=== PATIENT | male | born 1985 | race Two or more races ===

== ENCOUNTER 2022-01-25 12:03 | Outpatient (REF) | payer OTHER, SELFPAY ==
[2022-01-25 13:42] LABS: Hematocrit 42.9 % (42.0-52.0); Hemoglobin 14.2 g/dl (14.0-18.0); Mean Corpuscular HGB Conc 33.1 g/dl (31.0-36.0); Mean Corpuscular Hemoglobin 28.9 pg (27.0-33.0); Mean Corpuscular Volume 87.4 fL (80.0-98.0); Mean Platelet Volume 10.2 fL (9.4-12.4); Platelet Count 293 X10*3/uL (160-400); Red Blood Count 4.91 X10*6/uL (4.60-5.80); Red Cell Distribution Width 12.6 % (11.0-16.0); White Blood Count 7.3 X10*3/uL (4.8-10.8)
[2022-01-25 14:00] LABS: Alanine Aminotransferase 45 U/L (0-40); Albumin Level 4.5 g/dL (3.5-5.0); Alkaline Phosphatase 59 U/L (39-117); Anion Gap 14 (12-20); Aspartate Amino Transferase 35 U/L (5-37); Bilirubin Total 0.5 mg/dL (0.0-1.0); Blood Urea Nitrogen 10 mg/dL (9-16); Calcium 9.5 mg/dL (8.4-10.2); Carbon Dioxide 27 mmol/L (22-29); Chloride 104 mmol/L (96-108); Cholesterol 197 mg/dL; Estimated Glomerular Filt Rate > 60; Glucose Fasting 100 mg/dL (60-99); HDL Cholesterol 29 mg/dL; Potassium 4.4 mmol/L (3.3-5.1); Sodium 141 mmol/L (135-145); Total Protein 7.5 g/dL (6.5-8.0); Triglycerides 450 mg/dL
[2022-01-25 14:24] LABS: TSH reflex Free T4 0.98 uIU/mL (0.32-4.0)
== END 2022-01-25 12:04 | disposition home or self-care (01) ==
LOC: HO.LAB 12:03
PROVIDERS: PCP Physician Assistant; Visit Provider Nurse Practitioner Family
DX: E78.00 Pure hypercholesterolemia, unspecified (principal); L72.9 Follicular cyst of the skin and subcutaneous tissue, unspecified; M25.512 Pain in left shoulder; G89.29 Other chronic pain; R51.9 Headache, unspecified; K21.9 Gastro-esophageal reflux disease without esophagitis; Z76.89 Persons encountering health services in other specified circumstances
CPT/HCPCS: 36415; 80053; 80061; 84443; 85027

== ENCOUNTER 2022-06-04 10:18 | Outpatient (REF) | payer OTHER, SELFPAY ==
[2022-06-04 12:05] LABS: Estimated Average Glucose 100 mg/dL; Hemoglobin A1c % 5.1 %
[2022-06-04 12:37] LABS: Alanine Aminotransferase 33 U/L (0-40); Albumin Level 4.4 g/dL (3.5-5.0); Alkaline Phosphatase 66 U/L (39-117); Aspartate Amino Transferase 20 U/L (5-37); Bilirubin Direct < 0.2 mg/dL (0.0-0.5); Bilirubin Total 0.3 mg/dL (0.0-1.0); Cholesterol 215 mg/dL; Gamma Glutamyl Transpeptidase 43 U/L (11-51); HDL Cholesterol 29 mg/dL; Total Protein 7.3 g/dL (6.5-8.0); Triglycerides 555 mg/dL
== END 2022-06-04 10:19 | disposition home or self-care (01) ==
LOC: HO.LAB 10:18
PROVIDERS: PCP Physician Assistant; Visit Provider Nurse Practitioner Family
DX: E78.1 Pure hyperglyceridemia (principal); E11.9 Type 2 diabetes mellitus without complications; E78.00 Pure hypercholesterolemia, unspecified
CPT/HCPCS: 36415; 80061; 80076; 82977; 83036

== ENCOUNTER 2022-07-13 15:51 | Outpatient (REF) | payer OTHER, SELFPAY ==
[2022-07-13 16:51] LABS: Hematocrit 45.3 % (42.0-52.0); Hemoglobin 16.1 g/dl (14.0-18.0); Mean Corpuscular HGB Conc 35.5 g/dl (31.0-36.0); Mean Corpuscular Hemoglobin 30.1 pg (27.0-33.0); Mean Corpuscular Volume 84.8 fL (80.0-98.0); Mean Platelet Volume 10.1 fL (9.4-12.4); Platelet Count 297 X10*3/uL (160-400); Red Blood Count 5.34 X10*6/uL (4.60-5.80); Red Cell Distribution Width 13.1 % (11.0-16.0); White Blood Count 9.2 X10*3/uL (4.8-10.8)
[2022-07-13 17:16] LABS: Anion Gap 17 (12-20); Blood Urea Nitrogen 17 mg/dL (9-16); Calcium 9.7 mg/dL (8.4-10.2); Carbon Dioxide 23 mmol/L (22-29); Chloride 105 mmol/L (96-108); Estimated Glomerular Filt Rate > 60; Glucose Random 99 mg/dL (60-115); Iron 78 mcg/dL (45-160); Lipase 24 U/L (8-78); Percent Iron Saturation 19 % (15-50); Potassium 4.4 mmol/L (3.3-5.1); Sodium 141 mmol/L (135-145); Total Iron Binding Capacity 406 mcg/dL (228-428); Unsaturated Iron Binding 328 ug/dL
== END 2022-07-13 15:52 | disposition home or self-care (01) ==
LOC: HO.LAB 15:51
PROVIDERS: PCP Physician Assistant; Visit Provider Nurse Practitioner
DX: R10.10 Upper abdominal pain, unspecified (principal); K27.9 Peptic ulcer, site unspecified, unspecified as acute or chronic, without hemorrhage or perforation; K21.9 Gastro-esophageal reflux disease without esophagitis; D50.9 Iron deficiency anemia, unspecified; E66.01 Morbid (severe) obesity due to excess calories
CPT/HCPCS: 36415; 80048; 83540; 83690; 85027; 99202

== ENCOUNTER 2022-07-16 | Outpatient (REF) | payer OTHER, SELFPAY | END 2022-07-16 00:01 | disposition home or self-care (01) | LOC: HO.LNP | PROVIDERS: Visit Provider Nurse Practitioner | DX: E66.01 Morbid (severe) obesity due to excess calories (principal); K21.9 Gastro-esophageal reflux disease without esophagitis; R10.10 Upper abdominal pain, unspecified | CPT/HCPCS: 87338 ==